=== PATIENT | male | born 1940 | race Caucasian/White ===

== ENCOUNTER 2019-05-04 06:52 | Day surgery (SDC) | payer MEDICARE ==
[~2019-05-04 06:52] MED LIST: CELECOXIB 100 MG CAPSULE PO ONE; CLINDAMYCIN PHOS/D5W 900MG 900 MG/50 ML BAG IVPB ONE; FAMOTIDINE 20MG TABLET PO ONE; GENTAMICIN SULFATE 400 MG in 0.9 % SODIUM CHLORIDE 100ML 100 ML IV ONE; MECLIZINE 25 MG TABLET PO ONE; METOCLOPRAMIDE 10 MG TABLET PO ONE; VANCOMYCIN 1GM/200ML PREMIX 1 GM/200 ML PIGGYBACK IVPB ONE
[2019-05-04] MEDS ORDERED: PHENYLEPHRINE HCL 10 MG/ML VIAL IVP ONE (06:53)
[2019-05-04] MEDS ORDERED: PROPOFOL 10 MG/ML VIAL IV ONE (06:53)
[2019-05-04] MEDS ORDERED: EPHEDRINE SULFATE 50 MG/ML ML IV ONE (06:53)
[2019-05-04] MEDS ORDERED: LIDOCAINE 2% MDV (20MG/ML) 20ML VIAL IV ONE (06:53)
[2019-05-04] MEDS ORDERED: MIDAZOLAM HCL 2MG/2ML VIAL IV ONE (06:53)
[2019-05-04] MEDS ORDERED: DEXAMETHASONE 4 MG/ML 1ML VIAL IVP ONE (06:53)
[2019-05-04] MEDS ORDERED: ROPIVACAINE HCL (NAROPIN) /PF 5MG/ML 20ML VIAL IV ONE (06:53)
[2019-05-04 07:46] LABS: ABO GROUP O; ANTIBODY SCREEN NEGATIVE (NEGATIVE); RH TYPE POSITIVE
[2019-05-04] MEDS ORDERED: RINGERS SOLUTION,LACTATED 1,000 ML IV ONE ×3 (07:50→11:10)
[2019-05-04] MEDS ORDERED: TRANEXAMIC ACID 1,000 MG/10 ML ML IU ONE (09:55)
[2019-05-04] MEDS ORDERED: BUPIVACAINE 0.5% W/EPI MPF 30 ML VIAL SQ ONE (09:55)
[2019-05-04] MEDS ORDERED: TRANEXAMIC ACID 1,000 MG/10 ML ML IV ONE (09:55)
[2019-05-04] MEDS ORDERED: HYDROCODONE/APAP 10/325 TABLET PO PRN (11:32)
[2019-05-04] MEDS ORDERED: KETOROLAC 30 MG/ML VIAL IVP PRN (11:32)
[2019-05-04] MEDS ORDERED: ZOLPIDEM TARTRATE 5 MG TABLET PO PRN (11:32)
[2019-05-04] MEDS ORDERED: ACETAMINOPHEN 325 MG TAB PO PRN (11:32)
[2019-05-04] MEDS ORDERED: HYDROMORPHONE HCL 2 MG/ML VIAL IM PRN (11:32)
[2019-05-04] MEDS ORDERED: ONDANSETRON HCL IV 4 MG/2 ML VIAL IVP PRN (11:32)
[2019-05-04] MEDS ORDERED: NALOXONE 0.4 MG/1 ML VIAL IVP PRN (11:32)
[2019-05-04] MEDS ORDERED: BISACODYL 10 MG SUPP RC PRN (11:32)
[2019-05-04] MEDS ORDERED: DIPHENHYDRAMINE HCL 25 MG CAPSULE PO PRN (11:32)
[2019-05-04] MEDS ORDERED: ACETAMINOPHEN W/ CODEINE 300MG/60MG TABLET PO PRN ×2 (11:32)
[2019-05-04] MEDS ORDERED: AL HYDROX/MAG HYDROX 30ML UD PO PRN (11:32)
[2019-05-04] MEDS ORDERED: TRAMADOL HCL 50 MG TABLET PO PRN (11:32)
[2019-05-04] MEDS ORDERED: MAGNESIUM HYDROXIDE 30 ML UDC PO PRN (11:32)
[2019-05-04] MEDS ORDERED: PROAIR HFA INH PRN (12:13)
[2019-05-04] MEDS: POTASSIUM CHLORIDE/D5-0.9%NACL 20 MEQ/1,000 ML BAG IV SCH ×2 (14:08→20:50)
[2019-05-04] MEDS: HYDROCODONE/APAP 10/325 TABLET PO PRN ×2 (14:11→21:33)
--- NOTE | 2019-05-04 15:30 | Rehab Evaluation ---
Patient Information - Patient Information Diagnosis: left knee OA Ordered Treatment: OT Evaluate and Treat Status: Initial Evaluation Surgery: Yes (left TKA ) Date of Surgery: 05/04/19 Past Medical/Surgical Hx: PAST MEDICAL/SURGICAL HISTORY Past Surgical History APPY 1956; HERNIA REPAIR 1963; RT HIP REPLACEMENT 2005; LT HIP REPLACEMENT 2007; DENTAL IMPLANTS; COLONOSCOPY. PMH - Respiratory Hx Respiratory Disorders Yes Hx Asthma Yes Hx Bronchitis Yes: HX OF Hx Dyspnea Yes: EXERTIONAL Hx Pneumonia Yes: LONG AGO X2 Hx of URI Yes: IN MARCH 2019 RESOLVED Hx of Productive Cough No: DENIES Hx of SOB Yes: EXERTIONAL PMH - Cardiovascular Hx Cardiovascular Disorders Yes Hx Hypertension Yes Hx Hypotension MED GOOD CONTROL Exercise Tolerance Fair PMH - Neuro Hx Neurological Disorders Yes Hx Neuropathy Yes: FINGERTIPS BILATERAL-HAS BILAT SHOULDER ISSUES PMH - GI Hx Gastrointestinal Disorders Yes Hx Abdominal Pain Yes: IBS-TENDS TO BE CONSTIPATED Hx Gastroesophageal Reflux Yes Hx Irritable Bowel Yes PMH - Hx Genitourinary Disorders Yes Hx Prostate Problems Yes: ENLARGED-ON TAMSULOSIN PMH - Endocrine Hx Endocrine Disorders No PMH - Musculoskeletal Hx Musculoskeletal Disorders Yes Hx Arthritis Yes: ALL OVER Hx Back Injury Yes: INTERMITTANT Hx Osteoporosis Yes PMH - Psych Hx Psychiatric Problems No PMH - Hematology/Oncology Hx Hematology/Oncology No Disorders Premorbid Status: Detail (Pt lives with spouse a 5 story house with his bedroom and bathroom on the second floor up from the main floor. He has 7 steps between stories. He has 3 steps with 1 railing at the entrance. He has a walk in shower with a seat and suction cup grab bars if needed. He has a standard height toilet, no grab bars. He is usually responsible for meal prep and home mgmt tasks and his spouse completes laundry. He has a commode, 2 wheeled walker, standard walker, multiple canes and crutches.) Precautions: [place], Fall, Other (WBAT left LE) - Time With Patient Total Time Spent With Patient (Min): 35 Treatment Procedures: Detail (OT eval low complexity) Subjective Information - Subjective Information Per Patient Objective Data - Pain Pain Present: Yes (08/20) - Mental Status Patient Orientation: Oriented x3 - Visual Perception Appears within normal limits for therapeutic activities - ROM Within normal limits (Imtiaz UE AROM WNL) - Strength/Tone Within normal limits (Imtiaz UE strength WNL) - Coordination Appears within normal limits for therapeutic activities - Bed Mobility Independent (Ind with supine to sit) - Transfers Independent (Ind with sit to stand from EOB) - Balance Balance Sitting: Good Balance Standing: Good - Sensation Intact - Gait Detail (Pt ambulating in room and hallway with 2 wheeled walker and SBA) - ADL's/IADL's Detail (Pt educated and able to demonstrate learning of modified LE dressing techniques including doffing slipper socks and donning pants and slip on shoes. Reviewed kitchen and shower safety and modifications, pt verbalized understanding.) Therapy Assessment - Therapy Assessment Detail (Pt is Ind with modified LE dressing techniques.) Problem List - Problem List Occupational Therapy Problem List: Detail (No current IP OT problems identified.) Goals - Goals Occupational Therapy Goals: No current IP OT goals identified. Prognosis - Prognosis Good Plan - Plan Occupational Therapy Plan: Pt is discharged from IP OT. Thank you for this referral.
--- NOTE | 2019-05-04 15:30 | Rehab Evaluation ---
Patient Information - Patient Information Diagnosis: L knee DJD Ordered Treatment: PT Evaluate and Treat Status: Initial Evaluation Surgery: Yes (L TKA) Past Medical/Surgical Hx: PAST MEDICAL/SURGICAL HISTORY Past Surgical History APPY 1956; HERNIA REPAIR 1963; RT HIP REPLACEMENT 2005; LT HIP REPLACEMENT 2007; DENTAL IMPLANTS; COLONOSCOPY. PMH - Respiratory Hx Respiratory Disorders Yes Hx Asthma Yes Hx Bronchitis Yes: HX OF Hx Dyspnea Yes: EXERTIONAL Hx Pneumonia Yes: LONG AGO X2 Hx of URI Yes: IN MARCH 2019 RESOLVED Hx of Productive Cough No: DENIES Hx of SOB Yes: EXERTIONAL PMH - Cardiovascular Hx Cardiovascular Disorders Yes Hx Hypertension Yes Hx Hypotension MED GOOD CONTROL Exercise Tolerance Fair PMH - Neuro Hx Neurological Disorders Yes Hx Neuropathy Yes: FINGERTIPS BILATERAL-HAS BILAT SHOULDER ISSUES PMH - GI Hx Gastrointestinal Disorders Yes Hx Abdominal Pain Yes: IBS-TENDS TO BE CONSTIPATED Hx Gastroesophageal Reflux Yes Hx Irritable Bowel Yes PMH - Hx Genitourinary Disorders Yes Hx Prostate Problems Yes: ENLARGED-ON TAMSULOSIN PMH - Endocrine Hx Endocrine Disorders No PMH - Musculoskeletal Hx Musculoskeletal Disorders Yes Hx Arthritis Yes: ALL OVER Hx Back Injury Yes: INTERMITTANT Hx Osteoporosis Yes PMH - Psych Hx Psychiatric Problems No PMH - Hematology/Oncology Hx Hematology/Oncology No Disorders Premorbid Status: Detail (The patient was independent with all mobility prior to surgery.) Social History: Detail (The patient lives in a 5 1/2 story home with sets of 7 steps between floors with one handrail. The house has 3 steps at each enterance, one enterance has a railing, the other does not. The bathroom is equipped with a walk in shower grab bars and shower bench, standard height toilet with a commode with handles. The patient has front wheeled walker, and standard cane and crurches.) Precautions: [place], Fall, Other (WBAT on the L LE) - Time With Patient Total Time Spent With Patient (Min): 30 Treatment Procedures: Detail (Initial Evaluation low complexity.) Subjective Information - Subjective Information Per Patient (The patient had complaints of level 5 L knee pain using the 0-10 pain scale.) Objective Data - Mental Status Patient Orientation: Oriented x3 - Visual Perception Appears within normal limits for therapeutic activities - ROM Not within normal limits (The patient's L Knee AROM is limited s/p surgery. All other LE AROM is WNL.) - Strength/Tone Not within normal limits (The patient's LE strength was not tested s/p surgery however was functional.) - Bed Mobility Independent (The patient was independent with supine to and from sit transfer.) - Transfers Independent (The patient was independent with sit to and from stand transfer and toilet transfer.) - Balance Balance Sitting: Good Balance Standing: Good - Sensation Intact - Gait Detail (The patient ambulated 150 feet x 1 wWBAT on the L LE with front wheeled walker independently.) Therapy Assessment - Therapy Assessment Detail (The patient was independent with bed mobility and transfers and ambulation. The patient will be seen for 1-2 sessions for completion of inpt. goals.) Problem List - Problem List Physical Therapy Problem List: Detail (Decreased L knee AROM and L LE strength s/p surgery.) Goals - Goals Physical Therapy Goals: 1) The patient will be independent with TKA HEP. 2) The patient will ambulate on flights of stairs with supervision for safety using proper technique. Plan - Plan Physical Therapy Plan: PT 1-2 sessions for gait training on stairs and instruction in HEP.
[2019-05-04] MEDS: VANCOMYCIN 1GM/200ML PREMIX 1 GM/200 ML PIGGYBACK IVPB SCH (20:47)
[2019-05-04] MEDS: DOCUSATE SODIUM 100 MG CAPSULE PO SCH (21:32)
[2019-05-04] MEDS: CHLORPHENIRAMINE 12 MG PO SCH (21:32)
[2019-05-04] MEDS: SAW PALMETTO 450 MG PO SCH (21:33)
[2019-05-04] MEDS: FLOVENT HFA 110MCG INH SCH (23:43)
[2019-05-05] MEDS: HYDROCODONE/APAP 10/325 TABLET PO PRN ×3 (04:30→13:19)
[2019-05-05 06:44] LABS: HEMATOCRIT 36.8 % (42.0-52.0); HEMOGLOBIN 12.4 gm/dl (14.0-18.0)
[2019-05-05 07:00] LABS: BLOOD UREA NITROGEN 17 mg/dL (8-23); CREATININE 0.8 mg/dL (0.7-1.2); EST GLOMERULAR FILTRATION RATE > 60 mL/min; GLUCOSE,RANDOM 117 mg/dL (74-109)
[2019-05-05] MEDS: VANCOMYCIN 1GM/200ML PREMIX 1 GM/200 ML PIGGYBACK IVPB SCH (08:49)
[2019-05-05] MEDS: DOCUSATE SODIUM 100 MG CAPSULE PO SCH (09:17)
[2019-05-05] MEDS: [UNRECOGNIZED DRUG - OTHER] PO SCH ×2 (09:20→09:24)
[2019-05-05] MEDS: SAW PALMETTO 450 MG PO SCH (09:20)
[2019-05-05] MEDS: CHLORPHENIRAMINE 12 MG PO SCH (09:21)
[2019-05-05] MEDS: FLOVENT HFA 110MCG INH SCH (09:57)
[2019-05-05] MEDS ORDERED: TAMSULOSIN 0.4MG PO SCH (10:00)
[2019-05-05] MEDS ORDERED: FERROUS SULFATE 325 MG TAB PO SCH (10:00)
[2019-05-05] MEDS ORDERED: AMLODIPINE BENAZEPRIL PO SCH (10:00)
[2019-05-05] MEDS ORDERED: MILK THISTLE PO SCH (10:00)
[2019-05-05] MEDS ORDERED: PREVAGEN 10 MG PO SCH (10:00)
[2019-05-05] MEDS ORDERED: RIVAROXABAN 10 MG TABLET PO SCH (10:00)
[2019-05-05] MEDS ORDERED: CO Q10 100 MG PO SCH (10:00)
--- NOTE | 2019-05-05 10:10 | Physical Therapy Tx Note ---
Physical Therapy Tx Note - Treatment Note Tolerated: Good Total Time Spent With Patient: 35 Physical Therapy Tx Note: Detail (Patient was sitting in chair with foot propped on cryo machine. Patient states 4/10 pain in left knee. Patient performed the following exercises x10 reps each seated in chair: glut squeezes, quad sets, ankle pumps, heel slides, SLR, and hamstring sets. Patient transferred sit to and from stand SBA x1. Patient ambulated 462 feet with wheeled walker SBA x1. Patient descended and ascended 11 steps with using stairwell railing and walker CGA x1. Patient tolerated treatment well. Patient displays good understanding of HEP, ambulation with walker, and stair climbing. Patient was left seated in chair with left foot propped on cryo machine. Patient discharged from inpatient PT at this time as all goals are met.) Physical Therapy Problem List: Detail (Decreased L knee AROM and L LE strength s/p surgery.) Physical Therapy Goals: 1) The patient will be independent with TKA HEP. Met. 2) The patient will ambulate on flights of stairs with supervision for safety using proper technique. Met. Prognosis: Good Physical Therapy Plan: Patient discharged from inpatient PT at this time as all goals are met.
[2019-05-05] MEDS: POTASSIUM CHLORIDE/D5-0.9%NACL 20 MEQ/1,000 ML BAG IV SCH ×2 (12:32→12:33)
--- NOTE | 2019-05-09 08:20 | Operative Note ---
DATE OF SURGERY: 05/04/2019 PREOPERATIVE DIAGNOSIS: End-stage arthrosis of the left knee. POSTOPERATIVE DIAGNOSIS: End-stage arthrosis of the left knee. OPERATION: Cemented left total knee arthroplasty using Graham and Nephew components with a size 7 cobalt chrome Legion femur, a size 6 stemmed tibia baseplate, an 11 mm lipped tibial insert, and a 35 mm all-plastic patella. STAFF SURGEON: Isaac Jarrett MD ANESTHESIA: Spinal. PREPARATION: Chloraprep. ASSISTANT KITCHEN MANAGER: Familia Ayala Andrade INDIVIDUAL CONSIDERATIONS: None. PROCEDURE: The patient was taken to the operating room, placed supine on the operating room table. The patient had a successful induction of a spinal anesthetic. The left lower extremity was prepped and draped in the usual fashion. The patient had a midline approach to the knee. The limb was elevated and tourniquet was inflated to 250 mmHg. Sharp dissection carried down through skin and subcutaneous tissue. Small veins were coagulated with a Bovie. A medial arthrotomy was performed. The patella was everted and the knee was flexed. The patient had exposed bone in the medial and patellofemoral compartments with quite a bit of bone loss and large marginal osteophytes especially medially. Fat pad was resected, ACL was sacrificed, and provisional anterior meniscectomies were performed. The capsule was released from the medial proximal tibia. The initial femoral marine pilot hole was then made freehand. The intramedullary femoral cutting jig was placed in 7.0 degrees of valgus. It was adjusted for rotation and secured with pins for a 10 mm resection. The initial transverse cut was then made. The skin guide was placed through the anterior and posterior marine pilot holes. The holes were drilled in 3 degrees of external rotation. It was found that a size 7 would be appropriate. The anterior and posterior cuts followed by chamfer cuts were made. Osteophytes removed, and a size 7 trial was placed and found to fit well. The tibia was brought forward, and the remainder of the meniscal remnants removed with a Bovie. The extraarticular tibial cutting jig was placed. It was cut in neutral with a 3-degree AP slope. It was set for a 9 mm resection keyed off the high lateral side and secured with pins. When cutting the tibia, care was taken to preserve the PCL insertion on the tibia. After removing huge medial osteophytes, I was able to fit a size 6. It was adjusted for rotation and secured with pins. With an 11 mm tibial insert and a femoral trial, there was excellent motion and stability. Ligamentous balance and rotation alignment were thought to be normal. Femoral marine pilot holes were impacted and the tibial keel stamp was impacted, and these trial components were removed. The patient had a thick patella and roughly 9 mm of bone was removed freehand. I could easily fit a 35 mm patella, and the 3 marine pilot holes were drilled. The tourniquet was let down briefly to get bleeders posteriorly and then placed back up again. The knee was then thoroughly irrigated out with pulsatile Betadine and saline to remove any visual or palpable debris. Bony surfaces were then dried with the CarboJet. I then went ahead and cemented a size 6 stemmed tibia baseplate followed by impaction of the 11 mm lipped tibial insert followed by cementing in the size 7 cobalt chrome femur followed by cementing in the 35 mm all-plastic patella. The implant surfaces were compressed, excess cement was removed. After the cement had set, there was excellent motion and stability. Ligamentous balance, rotation alignment, and patellofemoral tracking were normal. Tourniquet was let down. Hemostasis was obtained with a Bovie. The skin and periosteum were then infiltrated with 30 mL of 0.5% Marcaine with epinephrine. Final irrigation to remove loose floating debris. The capsule was then closed with a running #2 quill, subcu was closed in layers with running 0 quill, skin was closed with jose. Then 1 g of tranexamic acid was mixed with 30 mL of saline and injected into the knee through a sterile 18-gauge needle, and a sterile bulky compressive KAYLEY-type dressing was applied. The patient tolerated the procedure well. Needle and sponge counts were correct. Estimated blood loss was minimal, and he was taken back to recovery in good condition. There were no complications. EMELIA
== END 2019-05-05 14:05 | disposition home health service (06) ==
LOC: SUR 06:52 → MEDSURG 12:30 → SUR 05-05 14:05
PROVIDERS: ATTEND Orthopaedic Surgery
DX: M17.12 Unilateral primary osteoarthritis, left knee (principal); I10 Essential (primary) hypertension; J45.909 Unspecified asthma, uncomplicated; G62.9 Polyneuropathy, unspecified
CPT/HCPCS: 76942; 80048; 85014; 85018; 86850; 86900; 86901; 94640; C1776; J1580; J2370; J3370; J3480; J7120